=== PATIENT | male | born 1965 | race Caucasian/White ===

== ENCOUNTER 2016-07-10 00:42 | Emergency (ER) | payer OTHER ==
[~2016-07-10] VITALS: Ht 190.5 cm; Wt 95.3 kg
[2016-07-10 00:49] VITALS: BP 159/94
--- NOTE | 2016-07-10 01:31 | ED ANKLE/FOOT INJURY COMPLAINT ---
History of Present Illness General Chief Complaint: Lower Extremity Injury Stated Complaint: "PER PT DROPPED WOOD ON LT FOOT" Source: patient, family Exam Limitations: no limitations Vital Signs & Intake/Output Vital Signs & Intake/Output Vital Signs Date Time Temp Pulse Resp B/P B/P Pulse O2 O2 Flow FiO2 Mean Ox Delivery Rate 07/10 0049 98.8 100 16 159/94 96 Room Air Allergies Coded Allergies: No Known Allergies (07/10/16) Reconcile Medications Oxycodone HCl/Acetaminophen (Percocet 5-325 MG Tablet) 5 MG-325 MG TABLET 1-2 TAB PO Q6P PRN PAIN Triage Note: PT ARRIVES TO ED ON [facility] FROM HOME. DROPPED PIECE OF WOOD ON L FOOT "MOST ON MY BIG TOE." AT 1830 LAST PM. PT REPORTS HE WAS INTITIALLY ABLE TO WALK ON L FOOT BUT PAIN/SWELLING GOT WORSE. 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 SWELLING TO L GREAT TOE NOTED. CAP REFILL <2 SEC. Triage Nurses Notes Reviewed? yes HPI: Patient accidentally dropped a log onto his left foot. The log hit at the base of his great toe. His has been having a throbbing pain to that area since then. The pain increases with ambulation. There is no radiation. He rates a throbbing pain at 6 out of 10. Patient denies any other injury. Past History Travel History Traveled to [place] past 21 day No Medical History Any Pertinent Medical History? none Neurological: NONE EENT: NONE Cardiovascular: NONE Respiratory: NONE Gastrointestinal: NONE Hepatic: NONE Renal: NONE Musculoskeletal: NONE Psychiatric: NONE Endocrine: NONE Surgical History Surgical History: non-contributory Psychosocial History What is your primary language Portuguese Tobacco Use: Never used ETOH Use: occasional use Illicit Drug Use: denies illicit drug use Family History Hx Contributory? No Review of Systems Review of Systems Constitutional: Reports: no symptoms. Respiratory: Reports: no symptoms. Cardiovascular: Reports: no symptoms. Musculoskeletal: Reports: see HPI. Neurological/Psychological: Reports: no symptoms. Immunologic/Allergic: Reports: no symptoms. Physical Exam Physical Exam General Appearance: well developed/nourished, alert, awake Eyes: Bilateral: PERRL, EOMI. Neck: normal inspection, supple, full range of motion Cardiovascular/Respiratory: normal breath sounds, normal peripheral pulses, regular rate/rhythm, no respiratory distress Leg/Knee/Thigh Left: normal range of motion, normal inspection Leg/Knee/Thigh Right: normal range of motion, normal inspection Foot Left: pain, soft tissue tenderness, swelling Neuro/Vascular: normal motor function, normal sensation Progress Differential Diagnosis: fracture, sprain, contusion Plan of Care: Current Medications Sig/Manjit Start time Last Medication Dose Stop Time Status Admin Oxycodone/ 1 TAB ONCE ONE 07/10 144 UNVr Acetaminophen 07/10 145 (Percocet) Diagnostic Imaging: Viewed by Me: Radiology Read. Discussed w/RAD: Radiology Read. Radiology Impression: PATIENT: AUGUSTA GATES PRESENT AGE: 51 PATIENT ACCOUNT NO: [id number] : 63 LOCATION: [facility] ORDERING PHYSICIAN: VINAY KEMP MD SERVICE DATE: 07/10/16 EXAM TYPE: RAD - XRY-FOOT COMPLETE, LEFT EXAMINATION: XR FOOT, LEFT CLINICAL INFORMATION: Dropped wood on foot COMPARISON: None TECHNIQUE: AP, lateral, and oblique views of the left foot. FINDINGS: Osseous alignment is anatomic. No acute fracture is seen. There is moderate degenerative change at the first metatarsophalangeal joint with narrowing and spurring. No significant focal soft tissue abnormality is seen. IMPRESSION: No acute findings identified. DICTATED BY: JESSIE OSORIO MD DATE/TIME DICTATED:07/10/16134 BRASS POLISHER:THERESA DATE/TIME TRANSCRIBED:07/10/16134 CONFIDENTIAL, DO NOT COPY WITHOUT APPROPRIATE AUTHORIZATION. <Electronically signed in Other Vendor System> SIGNED BY: JESSIE OSORIO MD 07/10/16141 Departure Departure Disposition: HOME OR SELF CARE Condition: Stable Clinical Impression Primary Impression: Contusion of left foot Qualifiers: Encounter type: initial encounter Qualified Code: S90.32XA - Contusion of left foot, initial encounter Referrals: LIZ PATTERSON,AUGUSTA Sims (PCP/Family) SOLOMON ELAINE DPM Additional Instructions: RETURN IF SYMPTOMS WORSENOR FOR ANY CONCERNS Departure Forms: Customer Survey General Discharge Information Prescriptions: Current Visit Scripts Oxycodone HCl/Acetaminophen (Percocet 5-325 MG Tablet) 1-2 TAB PO Q6P PRN PAIN #20 TAB
[2016-07-10] MEDS ORDERED: PERCOCET 5-3251 EACH PO (01:39)
--- NOTE | 2016-07-10 01:42 | RADIOLOGY REPORT ---
EXAMINATION: XR FOOT, LEFT CLINICAL INFORMATION: Dropped wood on foot COMPARISON: None TECHNIQUE: AP, lateral, and oblique views of the left foot. FINDINGS: Osseous alignment is anatomic. No acute fracture is seen. There is moderate degenerative change at the first metatarsophalangeal joint with narrowing and spurring. No significant focal soft tissue abnormality is seen. IMPRESSION: No acute findings identified.
== END 2016-07-10 01:44 ==
LOC: ERH 00:42
DX: S90.32XA Contusion of left foot, initial encounter (principal); W20.8XXA Other cause of strike by thrown, projected or falling object, initial encounter; Y92.9 Unspecified place or not applicable; Y93.9 Activity, unspecified
CPT/HCPCS: 73630-LT